=== PATIENT | female | born 1995 | race Caucasian/White ===

== ENCOUNTER 2017-07-30 17:59 | Emergency (ER) | payer OTHER ==
[2017-07-30 18:13] VITALS: BP 142/97; PULSE 81; TEMP 98.9; BMI 50.6
--- NOTE | 2017-07-30 18:48 | PDOC ---
History of Present Illness - General Stated Complaint: RESPIRATORY Time Seen by Provider: 07/30/17 18:26 History Source: Patient, Parent(s) Exam Limitations: No Limitations - History of Present Illness Associated Symptoms: reports: cough, shortness of breath. denies: denies symptoms, chest pain, fever/chills, headaches, loss of appetite, malaise, nausea /vomiting, syncope, weakness Past History - Travel Close contact w/someone who was outside of country & ill: No - Past Medical History Allergies/Adverse Reactions: Allergies Allergy/AdvReac Type Severity Reaction Status Date / Time amoxicillin Allergy Severe Rash Verified 07/30/17 18:10 Home Medications: Ambulatory Orders Albuterol Sulfate Inhaler - [Ventolin HFA Inhaler -] 2 inh PO Q4H #1 inh Benzonatate [Tessalon Pearls -] 100 mg PO TID #21 capsule 07/30/17 Cetirizine HCl 10 mg PO DAILY #30 tablet 07/30/17 COPD: No Other medical history: Pt denies - Suicide/Smoking/Psychosocial Hx Smoking History: Never smoked Have you smoked in the past 12 months: No Information on smoking cessation initiated: No Hx Alcohol Use: No Drug/Substance Use Hx: No Substance Use Type: None Review of Systems - Review of Systems Is the patient limited [place] proficient: No Constitutional: No: Chills, Fever Respiratory: Yes: Cough, Shortness of Breath, Wheezing. No: SOB at Rest, Stridor, Productive cough, Hemoptysis Cardiac (ROS): No: Chest Pain, Edema, Lightheadedness, Palpitations, Syncope ABD/GI: No: Abdominal Distended, Abd. Pain w/ defecation, Blood Streaked Bowels Psychiatric: No: Anxiety, Depression, Frequent Crying, Stressors Endocrine: No: Symptoms Reported, See HPI, Excessive Sweating, Flushing, Increased Hunger *Physical Exam - Vital Signs Last Vital Signs Temp Pulse Resp BP Pulse Ox 98.9 F 81 20 142/97 98 07/30/17 18:11 07/30/17 18:11 07/30/17 18:11 07/30/17 18:11 07/30/17 18:11 - Physical Exam General Appearance: Yes: Nourished, Appropriately Dressed HEENT: positive: EOMI, SHARLENE Neck: positive: Supple Respiratory/Chest: positive: Decreased Breath Sounds, Wheezing. negative: Respiratory Distress, Rhonchi, Stridor Cardiovascular: positive: Regular Rhythm, Regular Rate, S1, S2 Musculoskeletal: positive: Normal Inspection Extremity: positive: Normal Capillary Refill Integumentary: positive: Normal Color Neurologic: positive: brand representative II-XII NML intact, Fully Oriented, Alert ED Treatment Course - RADIOLOGY Radiology Studies Ordered: Category Date Time Status CHEST PA & LAT [RAD] Stat Radiology 07/30/17 18:42 Ordered Medical Decision Making - Medical Decision Making 07/30/17 18:46 21y/o F with cough and wheezing for 6 days. Patient also expresses intermittent shortness of breath. She denies any chest pain fever chills history of asthma or smoking. On exam poor respiratory efforts, unable to appreciate breath sound, + occasional expiratory wheeze. likley d/t effort. pt however is not in respiratory distress and no audible wheezing CXR--prelim no CXR, + mild peribronichial cuffing noted, likely viral bronchitiis pt responded well to nebs and predinsone d/c home with albuterol MDI and antihistamine f/u with PCP this week 07/30/17 19:37 *DC/Admit/Observation/Transfer Diagnosis at time of Disposition: Bronchitis - Discharge Dispostion Disposition: HOME Condition at time of disposition: Stable Admit: No - Prescriptions Prescriptions: Albuterol Sulfate Inhaler - [Ventolin HFA Inhaler -] 2 inh PO Q4H #1 inh Benzonatate [Tessalon Pearls -] 100 mg PO TID #21 capsule Cetirizine HCl 10 mg PO DAILY #30 tablet - Referrals Referrals: Josue Lino MD [Primary Care Provider] - - Patient Instructions Printed Discharge Instructions: DI for Acute Bronchitis Additional Instructions: Follow up with primary care doctor this week I discussed the physical exam findings, ancillary test results and final diagnoses with the patient. I answered all of the patient's questions. The patient was satisfied with the care received and felt comfortable with the discharge plan and treatment plan. The patient will call their primary care physician within 24 hours to arrange follow-up and will return to the Emergency Department with any new, persistant or worsening symptoms. - Post Discharge Activity
[2017-07-30] MEDS ORDERED: ALBUTEROL SO4 2.5/IPRATROPIUM 0.5 INH SOL 3 ML VIAL.NEB. NEB ONE ×2 (18:55)
[2017-07-30] MEDS ORDERED: predniSONE 20 MG TABLET (UD) PO ONE (19:35)
[2017-07-30] MEDS ORDERED: predniSONE 20 MG TABLET (UD) ONE (19:39)
== END 2017-07-30 19:45 | disposition home or self-care (01) ==
LOC: JERFT 17:59
PROC: 3E0F7GC Introduction of Other Therapeutic Substance into Respiratory Tract, Via Natural or Artificial Opening (ICD-10-PCS; principal; 2017-07-30)
DX: J40 Bronchitis, not specified as acute or chronic (principal)
CPT/HCPCS: 71046-TC-FY; 94640; 99281-25; J7620

== ENCOUNTER 2020-11-06 21:47 | Emergency (ER) | payer BC, OTHER ==
[2020-11-06 21:52] VITALS: TEMP 97; BMI 54.2
[2020-11-07 00:56] LABS: BASO % 0.5 % (0-2.0); EOS % 2.1 % (0-4.5); HEMATOCRIT 37.3 % (32.4-45.2); HEMOGLOBIN 12.3 GM/dL (10.7-15.3); LYMPH % 24.9 % (8-40); MCH 25.9 pg (25.7-33.7); MEAN CELL VOLUME 78.3 fl (80-96); MEAN PLT VOLUME 9.4 fl (7.5-11.1); MONO % 7.7 % (3.8-10.2); NEUT % 64.8 % (42.8-82.8); PLATELET COUNT 244 10^3/uL (134-434); RBC 4.76 M/mm3 (3.60-5.2); RDW 15.9 % (11.6-15.6); WHITE BLOOD COUNT 10.9 K/mm3 (4.0-10.0)
[2020-11-07 01:29] LABS: CHLORIDE 108 mmol/L (98-107); SODIUM 141 mmol/L (136-145)
[2020-11-07 01:31] LABS: CALCIUM 8.5 mg/dL (8.5-10.1)
[2020-11-07 01:32] LABS: ALBUMIN 3.3 g/dl (3.4-5.0); ANION GAP 8 MMOL/L (8-16); BLOOD UREA NITROGEN 13.1 mg/dL (7-18); CO2 25 mmol/L (21-32); GLUCOSE,RANDOM 84 mg/dL (74-106)
[2020-11-07 01:35] LABS: CREATININE 0.8 mg/dL (0.55-1.3); SGOT/AST 13 U/L (15-37); SGPT/ALT 23 U/L (13-61)
[2020-11-07 01:37] LABS: BILIRUBIN,TOTAL 0.3 mg/dL (0.2-1); TOT PROT 7.4 g/dl (6.4-8.2)
[2020-11-07 01:38] LABS: ALK PHOS 89 U/L (45-117)
[2020-11-07 02:48] VITALS: BP 136/80; PULSE 80
== END 2020-11-07 02:51 | disposition home or self-care (01) ==
LOC: JER 21:47
DX: R07.9 Chest pain, unspecified (principal)
CPT/HCPCS: 36415; 71046-TC-FY; 80053; 82550; 84484; 84703; 85025; 85379; 93005; 93010; 99285-25